=== PATIENT | female | born 1950 | race African-American/Black ===

== ENCOUNTER 2016-12-31 13:03 | Outpatient (CLI) | payer MEDICARE, MEDICAID ==
[2016-12-31 13:51] LABS: CREATININE 0.8 mg/dL (0.5-0.9); GLOMERULAR FILTRATION RATE > 60 mL/min (>60)
--- NOTE | 2017-01-01 10:27 | Diagnostic Imaging Report ---
Indication: Abdominal pain Technique: Continuous helical transaxial imaging of the abdomen and pelvis was obtained from the lung bases to the pubic symphysis during intravenous contrast administration. Coronal 2-D reformats were also obtained. Study obtained in a Siemens sensation [address] Total Dose length Product (DLP): [address] Dose Index Volume (CTDIvol): 19 mGy Comparison: None Findings: There is mild posterior basilar scarring with bronchiectasis and linear densities. There is biliary ductal dilatation present within the liver. The CBD is also dilated. Please correlate clinically. Cholecystectomy noted. No obvious choledocho stones are seen on this examination. The main pancreatic duct is also prominent and slightly dilated. The pancreas is grossly unremarkable. No other abnormalities of the liver identified. The spleen, adrenal glands appear unremarkable. There is a right renal cyst 2.3 CM noted. Suggestion of smaller cysts also in the right kidney. Appendix is normal. Calcifications noted in the uterus consistent with fibroids. Degenerative changes of the L5-S1 lower lumbar spine are present. There is no free fluid or free air. Impression: Biliary ductal dilatation noted. Please correlate clinically. If further evaluation is needed, MRCP may be helpful. Status post cholecystectomy. Uterine fibroids Right renal cysts Degenerative disc disease L5-S1. The CT scanner at [facility] is accredited by the [employer] and the scans are performed using dose optimization techniques as appropriate to a performed exam including Automatic Exposure control.
== END 2016-12-31 15:47 | disposition home or self-care (01) ==
LOC: CAT 13:03
DX: R10.31 Right lower quadrant pain (principal)
CPT/HCPCS: 36415; 74177; 82565; 84520; Q9967

== ENCOUNTER 2019-10-10 06:28 | Day surgery (SDC) | payer MEDICARE, MEDICAID ==
--- NOTE | 2019-10-05 16:31 | Opthalmology H&P ---
Ophthalmology H&P H&P Chief Complaint: decreased vision in right eye HPI Vision Affects Ability to: read, manage personal affairs HPI Narrative Blurry vision Exam Visual Acuity: OD 20/125 OS 20/30 Tension: OD 15 OS 11 Eye Exam: normal OU: external exam, palpebral fissure-width, marginal reflex distance, levator function, corneas, anterior chambers, lens - NS+CC cataract OD , fundus exam; findings: lens - NS+CC cataract OD Assessment/Plan Treatment Plan: cataract extraction w/ lens implant Goals of Treatment: improvement of vision, enhance quality of life Attestation Attestation The risks and benefits of the surgery as well as alternative procedures were explained to the patient in detail. Stone Jacobo MD Oct 05, 2019 16:31
--- NOTE | 2019-10-05 16:32 | Pre-Procedure Note/Attestation ---
Pre-Procedure Note/Attestation Complete Prior to Procedure Planned Procedure: right Procedure Narrative: Cataract extraction with IOL implant right eye Indications for Procedure Pre-Operative Diagnosis: Cortical/ Nuclear sclerotic cataract right eye Attestation I attest that I discussed the nature of the procedure; its benefits; risks and complications; and alternatives (and the risks and benefits of such alternatives ), prior to the procedure, with the patient (or the patient's legal truck sales representative). I attest that, if there was a reasonable possibility of needing a blood transfusion, the patient (or the patient's legal truck sales representative) was given the [facility] standardized written summary, pursuant to the Dimitris Stepping Stone Blood Safety Act ([place] Health and Safety Code # 1645, as amended). I attest that I re-evaluated the patient just prior to the surgery and that there has been no change in the patient's H&P, except as documented below: Stone Jacobo MD Oct 05, 2019 16:32
[2019-10-06 09:07] LABS: BASOPHILS % (AUTO) 0.7 % (0.0-2.0); EOSINOPHILS % (AUTO) 2.9 % (0.0-3.0); HEMATOCRIT 45.8 % (37.0-47.0); HEMOGLOBIN 15.3 G/DL (12.0-16.0); LYMPHOCYTES % (AUTO) 27.1 % (20.0-45.0); MEAN CORPUSCULAR VOLUME 92 FL (80-99); MONOCYTES % (AUTO) 7.1 % (1.0-10.0); NEUTROPHILS % (AUTO) 62.2 % (45.0-75.0); PLATELET COUNT 350 K/UL (150-450); RED BLOOD COUNT 4.95 M/UL (4.20-5.40); RED CELL DISTRIBUTION WIDTH 11.8 % (11.6-14.8); WHITE BLOOD COUNT 6.5 K/UL (4.8-10.8)
[2019-10-06 09:25] LABS: INR 0.9 (0.9-1.1)
[2019-10-06 09:49] LABS: ANION GAP 10 mmol/L (5-15); BLOOD UREA NITROGEN 16 mg/dL (7-18); CALCIUM 10.9 MG/DL (8.5-10.1); CARBON DIOXIDE 25 MMOL/L (21-32); CHLORIDE 106 MMOL/L (98-107); CREATININE 0.8 MG/DL (0.55-1.30); POTASSIUM 4.5 MMOL/L (3.5-5.1); SODIUM 141 MMOL/L (136-145)
--- NOTE | 2019-10-06 14:45 | Pre-op HX & Phy Repo 2 SIG ---
DATE OF ADMISSION: 10/10/2019 PRESURGICAL INTERNAL MEDICINE HISTORY AND PHYSICAL DATE OF EVALUATION: 10/06/2019. REASON FOR EVALUATION: I was asked by Dr. Stone Jacobo to see this 69-year-old female, who going for elective surgery on the right eye. The surgery scheduled for 10/10/2019. The patient has nuclear sclerotic cataract, right eye. Please see full Ophthalmology History and Physical by Dr. Stone Jacobo. PAST MEDICAL HISTORY/REVIEW OF SYSTEMS: Remarkable for history of hypertension, GERD. Denies history of chest pain, palpitation, or heart attack. No history of stroke or seizures. Denies history of thyroid problem. No history of anemia. No diabetes. Denies history of renal failure. PAST SURGICAL HISTORY: Remarkable for cholecystectomy and right ankle surgery for fracture. FAMILY HISTORY: Mother has diabetes mellitus and father Alzheimer disease. ALLERGIES: To penicillin. PRESENT MEDICATIONS: Include amlodipine, atenolol, baby aspirin, and omeprazole. HABITS: The patient denies history of smoke or alcohol habits. No street drugs. PHYSICAL EXAMINATION: GENERAL: Alert, well-developed, well-nourished female, in her 70s. No acute distress. VITAL SIGNS: Blood pressure 135/84, temperature 97.3, pulse 81 regular, respirations 18, O2 saturation 99% on room air. SKIN: Clear, dry, warm. No rashes. Lymph nodes not enlarged. HEENT: Head is normocephalic, atraumatic. Ears, clear. Eyes, full description per Dr. Stone Jacobo. Mouth, clear and moist. No dentures. NECK: No jugular vein distention. Carotids artery +2. Trachea midline. CHEST: No deformity or asymmetry. LUNGS: Clear to auscultation and percussion. HEART: Sinus rhythm. No ectopy. No murmur. No S3 or S4. LUNGS: No rales or rhonchi. ABDOMEN: Soft, benign. Liver and spleen not enlarged. No rebound. EXTREMITIES: No edema. No varicose vein. GENITOURINARY TRACT: No dysuria. Denies CVA tenderness. Electrocardiogram, normal sinus rhythm, normal ECG. Laboratory copy available in normal limits. The patient is to be NPO after midnight. IMPRESSION: 1. Nuclear sclerotic cataract, right eye. 2. Hypertension, controlled. 3. GERD. PLAN: Cataract extraction, right eye with intraocular lens implant per Dr. Stone Jacobo. CONCLUSION: The patient is a 69-year-old female with history of hypertension, GERD. Blood pressure controlled with medication. The patient to be NPO after midnight Thursday. The patient's condition optimized for surgery. Thank you very much, Dr. Jacobo, for privilege to participate in presurgical care of this is interesting patient. Haleigh Metcalf M.D. DR: HODA JOB#: [id number] CC:
[~2019-10-10] VITALS: Ht 157.5 cm; Wt 76.2 kg
[2019-10-10] VITALS (8 sets, daily range): BP systolic 131–141; BP diastolic 63–76
[~2019-10-10 06:28] MED LIST: ATENOLOL50 MG ORAL; BENADRYL25 MG ORAL; NORVASC10 MG ORAL; OMEPRAZOLE40 M1 ORAL
[2019-10-10] MEDS ORDERED: Akten 3.5% 1ml Btl RIGHT EYE ONE (07:00)
[2019-10-10] MEDS ORDERED: Proparacaine 0.5% Opth Soln 15ml RIGHT EYE ONE (07:00)
[2019-10-10] MEDS ORDERED: Tetracaine 0.5% Opth 4ml Soln RIGHT EYE ONE (07:00)
[2019-10-10] MEDS ORDERED: BSS 500ml btl ONE (07:13)
[2019-10-10] MEDS ORDERED: Sodium Hyaluronate 10 mg/ml 0.85ml ONE (07:13)
[2019-10-10] MEDS ORDERED: BSS 15ml BTL ONE (07:13)
[2019-10-10] MEDS ORDERED: ASPIR 8181 MG ORAL (07:49)
[2019-10-10] MEDS ORDERED: TYLENOL EXTRA500 MG ORAL (07:50)
[2019-10-10] MEDS: Tropicamide 1% Opth 15ml Soln RIGHT EYE SCH ×3 (07:56→08:10)
[2019-10-10] MEDS: Phenylephrine 10% Opth Soln 5ml RIGHT EYE SCH ×3 (07:56→08:11)
[2019-10-10] MEDS: Cyclopentolate 1% Opth Sol 2ml RIGHT EYE SCH ×3 (07:57→08:11)
[2019-10-10] MEDS: Ciprofloxacin Opth Soln 2.5ml RIGHT EYE SCH ×3 (07:58→08:11)
[2019-10-10] MEDS ORDERED: fentaNYL 100 mcg/2 mL IV ONE (08:33)
[2019-10-10] MEDS ORDERED: LR 1000ml 1,000 ML IVLG SCH (08:39)
--- NOTE | 2019-10-10 08:39 | Anethesia Preoperative Eval ---
Anesthesia Pre-op PMH/ROS General Date of Evaluation: Oct 10, 2019 Time of Evaluation: 08:36 Anesthesiologist: Nahum ASA Score: ASA 3 Mallampati Score Class I : Soft palate, uvula, fauces, pillars visible Class II: Soft palate, uvula, fauces visible Class III: Soft palate, base of uvula visible Class IV: Only hard plate visible Mallampati Classification: Class II Surgeon: Odalis Diagnosis: R eye cataract Surgical Procedure: Cataract extraction Anesthesia History: none Family History: no anesthesia problems Allergies: Coded Allergies: PENICILLINS (Verified Allergy, Severe, RASH, 10/10/19) SULFA (SULFONAMIDE ANTIBIOTICS) (Verified Allergy, Severe, RASH, 10/10/19) Medications: see eMAR Patient NPO?: Yes Past Medical History Cardiovascular: Reports: HTN; Denies: CAD, RI, valve dz, arrhythmia, other Pulmonary: Denies: asthma, COPD, DAVID, other Gastrointestinal/Genitourinary: Reports: GERD; Denies: CRI, ESRD, other Neurologic/Psychiatric: Reports: depression/anxiety; Denies: dementia, CVA, TIA, other Endocrine: Denies: DM, hypothyroidism, steroids, other HEENT: Reports: cataract (L), cataract (R); Denies: glaucoma, RED DEVIL (L), RED DEVIL (R), other Hematology/Immune: Denies: anemia, DVT, bleeding disorder, other Musculoskeletal/Integumentary: Reports: OA; Denies: RA, DJD, DDD, edema, other Other: other - overweight PMH Narrative: as above PSxH Narrative: see H&P Anesthesia Pre-op Phys. Exam Physician Exam Last Vital Signs Date Time Temp Pulse Resp B/P (MAP) Pulse Ox O2 Delivery O2 Flow Rate FiO2 10/10/19 08:06 Room Air 10/10/19 08:00 97.8 71 18 141/76 98 Constitutional: NAD Neurologic: CN 2-12 intact Cardiovascular: RRR Respiratory: CTA Gastrointestinal: S/NT/ND Airway Exam Mallampati Score: Class II MO: limited Neck: stiff ROM: limited Teeth: missing Dentures: no upper, no lower Anesthesia Pre-op A/P Labs see chart Studies Pre-op Studies: EKG - SR Risk Assessment & Plan Assessment: ASA 3 Plan: MAC Status Change Before Surgery: No Yasir Sidhu MD Oct 10, 2019 08:39
[2019-10-10] MEDS ORDERED: fentaNYL 100 mcg/2 mL IV PRN (08:45)
[2019-10-10] MEDS ORDERED: Povidone-Iodine 5% opth solution ONE ×2 (08:48→09:55)
[2019-10-10] MEDS ORDERED: NS Irrig 1000ml ONE (09:00)
[2019-10-10] MEDS ORDERED: Propofol 200mg/20ml IV ONE (09:00)
[2019-10-10] MEDS ORDERED: Sterile Water Irrig 1000ml IRRIG ONE (09:00)
[2019-10-10] MEDS ORDERED: LR 1000ml ONE (09:00)
--- NOTE | 2019-10-10 09:55 | Immediate Post-Op Evaluation ---
Immediate Post-Op Evalulation Immediate Post-Op Evalulation Procedure: R eye cataract extraction with IOL Date of Evaluation: Oct 10, 2019 Time of Evaluation: 09:54 IV Fluids: 300 Blood Products: none Estimated Blood Loss: none Urinary Output: none Blood Pressure Systolic: 136 Blood Pressure Diastolic: 72 Pulse Rate: 68 Respiratory Rate: 20 O2 Sat by Pulse Oximetry: 99 Temperature (Fahrenheit): 97.6 Pain Score (1-10): 1 Nausea: No Vomiting: No Complications none Patient Status: awake, patent, none Hydration Status: adequate Yasir Sidhu MD Oct 10, 2019 09:55
--- NOTE | 2019-10-10 10:33 | 48 Hour Post Anesthesia Eval ---
Post Anesthesia Evaluation Procedure: R eye cataract extraction with IOL Date of Evaluation: Oct 10, 2019 Time of Evaluation: 10:32 Blood Pressure Systolic: 132 0: 68 Pulse Rate: 72 Respiratory Rate: 20 Temperature (Fahrenheit): 97.6 O2 Sat by Pulse Oximetry: 98 Airway: patent Nausea: No Vomiting: No Pain Intensity: 1 Hydration Status: adequate Cardiopulmonary Status: stable Mental Status/LOC: patient returned to baseline Follow-up Care/Observations: n/a Post-Anesthesia Complications: none Follow-up care needed: ready to discharge Yasir Sidhu MD Oct 10, 2019 10:33
--- NOTE | 2019-10-12 09:09 | Brief Operative Note ---
Immediate Post Operative Note Operative Note Chief Complaint: Blurry vision Pre-op Diagnosis: Cortical/ Nuclear sclerotic cataract right eye Procedure: Cataract extraction with IOL implant right eye Post-op Diagnosis: Pseudo OD Findings: consistent w/pre-op dx studies Surgeon: Stone Jacobo MD Anesthesiologist: Yasir Sidhu MD Anesthesia: MAC Specimen: none Complications: none Condition: stable Fluids: LR Estimated Blood Loss: none Drains: none Implant(s) used?: Yes - IOL-OD Stone Jacobo MD Oct 12, 2019 09:09
--- NOTE | 2019-10-12 09:15 | Operative Note - PDOC ---
Operative Note Operative Note Date of Operation/Procedure: Oct 10, 2019 Chief Complaint: Blurry vision Pre-op Diagnosis: Cortical/ Nuclear sclerotic cataract right eye Procedure: Cataract extraction with IOL implant right eye Post-op Diagnosis: Pseudo OD Operative Findings: consistent w/pre-op dx studies Surgeon: Stone Jacobo MD Anesthesiologist: Yasir Sidhu MD Anesthesia: MAC Specimen: none Complications: none Condition: stable Fluids: LR Estimated Blood Loss: none Drains: none Implant(s) used?: Yes - IOL-OD Indications for Procedure Cortical/ Nuclear sclerotic cataract right eye Description of Procedure This patient has been complaining visually significant cataract in the right eye with the best corrected visual of 20/125 acuity under moderate glare conditions worse. The patient complains of difficulties with glare in performing activities of daily living and wants to manage personal affairs with comfort and accuracy and see well enough to move with safety at home and outdoors. The risks, benefits and alternatives of the procedure were discussed with the patient in the office prior to scheduling surgery. All questions from the patient were answered after the surgical procedure was explained in detail. The risks of the procedure as explained to the patient include, but are not limited to, pain, infection, bleeding, loss of vision, retinal detachment, need for further surgery, loss of lens nucleus, double vision, etc. Alternative procedures were discussed which include, to do nothing or seek a second opinion. Informed consent for this procedure was obtained from the patient. The patient was referred to a primary care physician for a cardiopulmonary clearance prior to surgery, after proper evaluation was done patient was properly scheduled for outpatient surgery. The patient was brought to the operating room where the anesthesiologist established I.V. lines and cardiac monitoring leads. Mild intravenous sedation was administered. The patient was then prepared with a 5% solution of povidone -iodine to the conjunctival fornix and lashes, and a 5% solution of povidone- iodine to the lids and periorbital skin. The patient was then draped in the usual sterile fashion. A lid speculum was then placed in the operative eye. A keratome blade was then used to create a biplanar incision into the anterior chamber. Viscoelastics was then instilled into the anterior chamber. A capsulorrhexis was then fashioned with an utrata forceps. The lens nucleus was hydrodissected and hydrodelineated with a G 27 Cannula. Paracentesis incision was made at 3 o'clock with sharp blade. The phacoemulsification unit, after being properly adjusted and tested, was then used to emulsify the nucleus followed by aspiration and irrigation of residual cortical material. Healon was then instilled into the anterior chamber. The corneal wound was then enlarged to the size of the optic with the derick keratome blade. The intraocular lens was then inspected for right power and size and thought to be satisfactory. Then the lens was gently placed in the capsular bag. Positioning within the capsular bag was confirmed by direct visualization. Optic centration was accomplished with a Sinskey hook. Viscoelastics was removed from the anterior chamber using the irrigation and aspiration unit. The corneal wound was then tested for leaks and none were found. The lid speculum were then removed. Sponge and needle counts were correct. An eye patch and shield were placed over the operative eye. The patient was taken to the recovery room in stable condition. There were no complications. The patient tolerated the procedure well. The patient was then transferred to the ambulatory surgery unit in stable and satisfactory condition , was given detailed written instructions and asked to follow up in the office the next day. Stone Jacobo MD Oct 12, 2019 09:15
== END 2019-10-10 11:15 | disposition home or self-care (01) ==
LOC: SUR 06:28
DX: H25.11 Age-related nuclear cataract, right eye (principal); Z90.49 Acquired absence of other specified parts of digestive tract; Z88.0 Allergy status to penicillin; Z79.82 Long term (current) use of aspirin; I10 Essential (primary) hypertension; K21.9 Gastro-esophageal reflux disease without esophagitis; H25.011 Cortical age-related cataract, right eye; F32.9 Major depressive disorder, single episode, unspecified; F41.9 Anxiety disorder, unspecified; E66.3 Overweight; Z68.30 Body mass index [BMI] 30.0-30.9, adult
CPT/HCPCS: 36415; 66984; 80048; 85025; 85610; 85730; 93005; J2704; J3010; J3370; J7120; V2632; 94003; 94150